=== PATIENT | female | born 1935 | race Caucasian/White ===

== ENCOUNTER 2023-07-04 14:00 | Emergency (ER) | payer OTHER, SELFPAY ==
[2023-07-04 14:11] VITALS: BP 160/68; PULSE 79; RESP 17; TEMP 36.5; O2SAT 97; BMI 36.6
--- NOTE | 2023-07-04 14:15 | DI.RAD.S_ITS ---
PROCEDURE: XR HIP W PEL IF DONE RT 2V INDICATIONS: pain TECHNIQUE: AP pelvis with lateral view(s) of the right hip(s). COMPARISON: None. FINDINGS: Bones: No fractures or dislocations. Pelvic ring appears intact. No suspicious bony lesions. Soft tissues: The visualized bowel gas pattern is normal. No suspicious soft tissue calcifications. IMPRESSION: No acute fracture. No osseous lesion. If symptoms and/or clinical suspicion for pathology persist, further assessment with repeat, or advanced imaging (e.g., CT, MRI, or bone scan) may be helpful for further assessment. Dictated by: Sandra Adams M.D. on 07/04/2023 at 15:03 Approved by: Sandra Adams M.D. on 07/04/2023 at 15:04
[2023-07-04 16:32] LABS: Bacteria Urine Many (>30); Culture Indicated Urine Specimen Cultured; RBC Urine 0-1/HPF (0-5/HPF); Squamous Epithelial Cell Urine 10-30 /HPF (0-5/HPF); WBC Urine 10-30/HPF (0-5/HPF)
[2023-07-04 16:48] VITALS: BP 177/76; PULSE 86; RESP 18; O2SAT 96
--- NOTE | 2023-07-04 16:49 | DI.US.S_ITS ---
PROCEDURE: US PERIPH VENOUS LOW EXTREM RT INDICATIONS: RIGHT THIGH/GROIN PAIN. TECHNIQUE: Real-time imaging, as well as color and pulse Doppler interrogation, were performed of the lower extremity deep veins from the inguinal ligament to the popliteal fossa, with documentation of the visualized calf veins. COMPARISON: None. FINDINGS: The common femoral, femoral and popliteal veins are normally compressible, and free of intraluminal thrombus. The calf veins including the peroneal and posterior tibial veins are not well seen secondary to soft tissue edema. Color and pulse Doppler demonstrate normal phasic intraluminal flow. There is normal augmentation response to distal compression maneuver. IMPRESSION: No findings of lower extremity deep venous thrombosis. Calf veins are not well visualized secondary to marked soft tissue edema. Approved by: Destiny Melgoza M.D. on 07/04/2023 at 18:11
--- NOTE | 2023-07-04 17:40 | PC.NURSE ---
Pt derek area was cleansed and dried thoroughly. Pt tolerated straight catheterization well. Pt was placed in a clean brief, laying in bed with daughters at bedside.
[2023-07-04] MEDS: KETOROLAC 30 MG/ML VIAL 15 MG IM (18:13)
--- NOTE | 2023-07-04 18:16 | ED.EXTPRO ---
HPI - Extremity Problem <Anahi Neves PA-C - Last Filed: 07/05/23 12:11> General Chief complaint: Extremity Problem,Nontraumatic Stated complaint: pain in right hip 1 week Time Seen by Provider: 07/04/23 16:07 Source: patient and family Mode of arrival: Wheelchair History of Present Illness HPI Narrative: Patient is an 87-year-old female who presents with right hip pain. She is accompanied by her 2 daughters. Patient normally lives in [place] with her son but is here for several months visiting the daughters. She had a fall last year and since then has had a decrease in her ability to care for herself. Her daughters has been helping her shower. Over the past 1 week, they have noticed she has been increasingly complaining of pain in her right hip and groin. They have been giving her Tylenol 1000 mg 3 times a day and ibuprofen 600 mg 3 times a day. This pain does not seem to be helping. They describe her mother is a very tough woman who does not normally complain of pain. She is having difficulty sleeping because of the pain. She did not fall recently. She has had no fever or chills, no urinary symptoms, eating and drinking normally. Related Data Home Medications Medication Instructions Recorded Confirmed amlodipine 5 mg tablet 5 mg PO DAILY 07/04/23 07/04/23 lisinopril 20 mg tablet 20 mg PO DAILY 07/04/23 07/04/23 rosuvastatin 5 mg tablet 5 mg PO DAILY 07/04/23 07/04/23 Previous Rx's Medication Instructions Recorded cefdinir 300 mg capsule 300 mg PO BID #10 caps 07/04/23 nystatin 100,000 unit/gram topical 1 applic topical TID #60 grams 07/04/23 powder tramadol 50 mg tablet 50 mg PO BID PRN pain #14 tabs 07/04/23 Allergies Allergy/AdvReac Type Severity Reaction Status Date / Time No Known Drug Allergies Allergy Verified 07/04/23 14:13 Review of Systems <Anahi Neves PA-C - Last Filed: 07/05/23 12:11> Review of Systems ROS Unobtainable: All systems reviewed & are unremarkable except as noted in HPI and below Patient History <Anahi Neves PA-C - Last Filed: 07/05/23 12:11> Social History Smoking Status: Former smoker Smoking Status: Former smoker alcohol intake frequency: holidays/special occasions only Substance Use Type: does not use Exam <Anahi Neves PA-C - Last Filed: 07/05/23 12:11> Narrative Exam Narrative: GENERAL: 87 year old patient appears stated age. Well-developed patient, in mild distress. NEURO: AOx3. HEAD: Atraumatic. Normocephalic. EYES: Pupils equal round and reactive. Extraocular motions intact. No scleral icterus. No injection or drainage. ENT: Nose without bleeding or purulent drainage. Airway patent. NECK: Trachea midline. Non tender CARDIOVASCULAR: Regular rate and rhythm without murmurs, gallops, or rubs. RESPIRATORY: Clear to auscultation. Breath sounds equal bilaterally. No wheezes, rales, or rhonchi. GASTROINTESTINAL: Abdomen soft, non-tender. Erythematous odiferous moist rash in her abdominal pannus. Mild rash in bilateral groin folds. EXTREMITIES: No induration or erythema or warmth over the superior right thigh where she also describes pain. No pain with deep palpation over the right trochanter. Femoral pulse intact. Hip movement and ambulation limited by discomfort. SKIN: Rash as noted above Initial Vital Signs Initial Vital Signs: Vital Signs Temperature 97.7 F 07/04/23 14:11 Pulse Rate 79 07/04/23 14:11 Respiratory Rate 17 07/04/23 14:11 Blood Pressure 160/68 H 07/04/23 14:11 Pulse Oximetry 97 07/04/23 14:11 Oxygen Delivery Method Room Air 07/04/23 14:11 <Tracy Gardiner DO - Last Filed: 07/07/23 07:40> Initial Vital Signs Initial Vital Signs: Vital Signs Temperature 97.7 F 07/04/23 14:11 Pulse Rate 79 07/04/23 14:11 Respiratory Rate 17 07/04/23 14:11 Blood Pressure 160/68 H 07/04/23 14:11 Pulse Oximetry 97 07/04/23 14:11 Oxygen Delivery Method Room Air 07/04/23 14:11 Course <Anahi Neves PA-C - Last Filed: 07/05/23 12:11> Orders Ordered: Discontinued Medications Ketorolac Tromethamine (Ketorolac 30 Mg/Ml Vial) 15 mg IM NOW ONE Stop: 07/04/23 18:08 Last Admin: 07/04/23 18:13 Dose: 15 mg Documented By: SPF Vital Signs Vital signs: Vital Signs - 8 hr 07/04/23 14:11 07/04/23 16:48 Temperature 97.7 F Pulse Rate 79 86 Respiratory Rate 17 18 Blood Pressure 160/68 H 177/76 H Pulse Oximetry 97 96 Oxygen Delivery Method Room Air Room Air <Tracy Gardiner DO - Last Filed: 07/07/23 07:40> Orders Ordered: Discontinued Medications Ketorolac Tromethamine (Ketorolac 30 Mg/Ml Vial) 15 mg IM NOW ONE Stop: 07/04/23 18:08 Last Admin: 07/04/23 18:13 Dose: 15 mg Documented By: SPF Vital Signs Vital signs: Vital Signs - 8 hr 07/04/23 14:11 07/04/23 16:48 Temperature 97.7 F Pulse Rate 79 86 Respiratory Rate 17 18 Blood Pressure 160/68 H 177/76 H Pulse Oximetry 97 96 Oxygen Delivery Method Room Air Room Air MDM - Extremity (Nontraumatic) <Anahi Neves PA-C - Last Filed: 07/05/23 12:11> Lab Data Labs: Lab Results 07/04/23 07/04/23 Range/Units 16:00 17:49 Urine Color Yellow Urine Appearance Clear Urine pH 5.0 (4.5-8.0) Ur Specific [place] 1.020 (1.000-1.035) Urine Protein Trace H (Negative) Urine Glucose (UA) Negative (Negative) g/dL Urine Ketones Trace H (NEGATIVE) Urine Occult Blood 2+ H (Negative) Urine Nitrate Positive H (Negative) Urine Bilirubin Negative (NEGATIVE) Urine Urobilinogen 0.2 (0.2) E.U./dL Ur Leukocyte Esterase 1+ H (NEGATIVE) Urine RBC 0-1/hpf 0-1/hpf (0-5/HPF) Urine WBC 10-30/hpf H 5-10/hpf H (0-5/HPF) Ur Squamous Epith Cells 10-30 /hpf H 5-10 /hpf H (0-5/HPF) Urine Bacteria Many (>30) H Many (>30) H (None) Urine Mucus 1+ H (Negative) Ur Culture Indicated? Specimen cultured Specimen cultured Urine Dip Bedside Urine Glucose Negative Bedside Urine Bilirubin - Negative Bedside Urine Ketone +/- 5 Urine Specific [place] 1.020 Bedside Urine Occult Blood +++ Bedside Urine pH 6.0 Bedside Urine Protein +/- 15 Bedside Urine Urobilinogen - Negative Bedside Urine Nitrite + Positive Bedside Urine Leukocytes +/- 15 Esterase Imaging Data US - DVT: Radiologist's Impression: PROCEDURE: US PERIPH VENOUS LOW EXTREM RT INDICATIONS: RIGHT THIGH/GROIN PAIN. TECHNIQUE: Real-time imaging, as well as color and pulse Doppler interrogation, were performed of the lower extremity deep veins from the inguinal ligament to the popliteal fossa, with documentation of the visualized calf veins. COMPARISON: None. FINDINGS: The common femoral, femoral and popliteal veins are normally compressible, and free of intraluminal thrombus. The calf veins including the peroneal and posterior tibial veins are not well seen secondary to soft tissue edema. Color and pulse Doppler demonstrate normal phasic intraluminal flow. There is normal augmentation response to distal compression maneuver. IMPRESSION: No findings of lower extremity deep venous thrombosis. Calf veins are not well visualized secondary to marked soft tissue edema. Approved by: Destiny Melgoza M.D. on 07/04/2023 at 18:11 Extremity x-ray #1: Radiologist's Impression: PROCEDURE: XR HIP W PEL IF DONE RT 2V INDICATIONS: pain TECHNIQUE: AP pelvis with lateral view(s) of the right hip(s). COMPARISON: None. FINDINGS: Bones: No fractures or dislocations. Pelvic ring appears intact. No suspicious bony lesions. Soft tissues: The visualized bowel gas pattern is normal. No suspicious soft tissue calcifications. IMPRESSION: No acute fracture. No osseous lesion. If symptoms and/or clinical suspicion for pathology persist, further assessment with repeat, or advanced imaging (e.g., CT, MRI, or bone scan) may be helpful for further assessment. Dictated by: Sandra Adams M.D. on 07/04/2023 at 15:03 Approved by: Sandra Adams M.D. on 07/04/2023 at 15:04 [facility] Narrative Medical decision making narrative: Multiple etiologies for patient's symptoms considered including, but not limited to: Hip fracture, soft tissue injury, DVT, osteoarthritis Hip x-ray negative for acute fracture. Ultrasound DVT study negative for right lower extremity DVT that could be causing her pain. There is no clinical evidence of cellulitis, rash or other deformity that could be causing her hip/leg pain. Patient does have a significant fungal rash in her abdominal pannus. Long discussion with daughters in regards to how to manage this including washing with a unscented soap, pat dry. Further drying with a anthropology department chair on no heat. Using a disposable chucks type pad to wick moisture out of the pannus. Initial UA contaminated, repeat cath UA consistent with infection. Antibiotics prescribed. Also prescribed tramadol for severe pain to be used in conjunction with Tylenol and ibuprofen. Family given instructions on how to use the store this medication. Patient is due to go back to [place]; encouraged family to make an appointment with her PCP for follow up when she returns home. Return to ED if symptoms worsen. Patient's symptoms improved over duration of stay with above-stated therapies. Findings and discharge diagnosis discussed with patient/family followed by verbalization of understanding Return precautions discussed with patient/family whom verbalize understanding of diagnosis and plan <Tracy Gardiner, - Last Filed: 07/07/23 07:40> Lab Data Labs: Lab Results 07/04/23 07/04/23 Range/Units 16:00 17:49 Urine Color Yellow Urine Appearance Clear Urine pH 5.0 (4.5-8.0) Ur Specific [place] 1.020 (1.000-1.035) Urine Protein Trace H (Negative) Urine Glucose (UA) Negative (Negative) g/dL Urine Ketones Trace H (NEGATIVE) Urine Occult Blood 2+ H (Negative) Urine Nitrate Positive H (Negative) Urine Bilirubin Negative (NEGATIVE) Urine Urobilinogen 0.2 (0.2) E.U./dL Ur Leukocyte Esterase 1+ H (NEGATIVE) Urine RBC 0-1/hpf 0-1/hpf (0-5/HPF) Urine WBC 10-30/hpf H 5-10/hpf H (0-5/HPF) Ur Squamous Epith Cells 10-30 /hpf H 5-10 /hpf H (0-5/HPF) Urine Bacteria Many (>30) H Many (>30) H (None) Urine Mucus 1+ H (Negative) Ur Culture Indicated? Specimen cultured Specimen cultured Urine Dip Bedside Urine Glucose Negative Bedside Urine Bilirubin - Negative Bedside Urine Ketone +/- 5 Urine Specific [place] 1.020 Bedside Urine Occult Blood +++ Bedside Urine pH 6.0 Bedside Urine Protein +/- 15 Bedside Urine Urobilinogen - Negative Bedside Urine Nitrite + Positive Bedside Urine Leukocytes +/- 15 Esterase Discharge Plan Departure Patient Disposition: Home Clinical Impression: Intertriginous dermatitis associated with moisture, Hip pain, right, Acute UTI Instructions: DI for Urinary Tract Infection (UTI), DI for Taking Pain Medication, DI for Mikki Diaper Rash Activity Restrictions/Additional Instructions: *You have been diagnosed with urinary tract infection, yeast skin rash, right hip/leg pain. I have prescribed an antibiotic that you will take twice a day for 5 days for the urinary tract infection. I have prescribed an antifungal powder to use for the yeast skin rash 3 times a day. As we discussed, clean with soap and water, pat dry. Use a blow dryer on no heat to fully dry the area. Sprinkled a powder generously over the rash area. Use a wicking pad to keep the area dry and change frequently. This infection can take quite a while to clear and you should continue to treat with the powder for at least 3 days after the rash has disappeared. There is no evidence of clot in your veins to suggest the that would be the cause of your leg pain. The x-ray did not show any fracture. I would use the pain medicine I have prescribed today as well as Tylenol and ibuprofen and a heating pad to see if this improves the pain. I would follow up with primary care. *What to do: *Please continue to take your regular medications as directed. [x ] New medication prescriptions sent to your pharmacy: [facility] [ ] New medication written as a paper prescription [ ] No new medications given *Please follow up with your primary care provider in 2-3 days, call for an appointment. Let them know you were seen in the Emergency Department and that we ask that you be seen in follow up. We will electronically transmit a record of today's note if your PCP is in our system *If you do not have a primary care provider please contact the [facility] Resource line at [phone]. They will ask some questions about your medical history and help get you set up with a doctor in the community. *Return to Emergency Department if you should have any new, worsening or concerning symptoms, such as [fever greater than 101 F, shaking chills, worsening pain, persistent vomiting or other concerning symptoms]. Prescriptions: New nystatin 100,000 unit/gram powder 1 applic topical TID Qty: 60 1RF cefdinir 300 mg capsule 300 mg PO BID Qty: 10 0RF tramadol 50 mg tablet 50 mg PO BID PRN (Reason: pain) Qty: 14 0RF No Action lisinopril 20 mg tablet 20 mg PO DAILY amlodipine 5 mg tablet 5 mg PO DAILY rosuvastatin 5 mg tablet 5 mg PO DAILY Stand Alone Forms: Patient Portal/API ED Sign-out <Tracy Gardiner DO - Last Filed: 07/07/23 07:40> Cosign ED Attending Cosignature Attestation: I was immediately available in the department for consultation.
--- NOTE | 2023-07-04 18:20 | PC.NURSE ---
Pt was walking back from the bathroom with a walker and one of her daughters. Pt now sitting up in chair, informed of waiting for results to come back.
[2023-07-04 18:29] LABS: Appearance Urine UA CLEAR; Bilirubin Urine UA NEGATIVE (NEGATIVE); Color Urine UA YELLOW; Glucose Urine UA NEGATIVE (Negative); Ketones Urine UA TRACE (NEGATIVE); Leukocyte Esterase Urine UA 1+ (NEGATIVE); Nitrite Urine UA POSITIVE (Negative); Occult Blood Urine UA 2+ (Negative); Protein Urine UA TRACE (Negative); Urobilinogen Urine UA 0.2 E.U./dL (0.2)
[2023-07-04 18:42] LABS: Bacteria Urine Many (>30); Culture Indicated Urine Specimen Cultured; Mucus Urine 1+ (Negative); RBC Urine 0-1/HPF (0-5/HPF); Squamous Epithelial Cell Urine 5-10 /HPF (0-5/HPF); WBC Urine 5-10/HPF (0-5/HPF)
[2023-07-04 18:44] VITALS: BP 135/65; PULSE 74; RESP 16; O2SAT 97
== END 2023-07-04 18:58 | disposition home or self-care (01) ==
PROVIDERS: Emergency Provider Physician Assistant
DX: L30.4 Erythema intertrigo (principal); M25.551 Pain in right hip; N39.0 Urinary tract infection, site not specified; Z79.899 Other long term (current) drug therapy
CPT/HCPCS: 51701; 73502; 81001; 81003; 81015; 87077; 87086; 87186; 93971; 96372; 99284; J1885